=== PATIENT | male | born 1990 | race African-American/Black ===

== ENCOUNTER 2019-06-23 16:51 | Emergency (ER) | payer OTHER ==
[~2019-06-23] VITALS: Ht 170.2 cm; Wt 56.7 kg
[2019-06-23 17:23] LABS: URINE BILIRUBIN NEGATIVE (Negative); URINE BLOOD NEGATIVE (Negative); URINE CLARITY CLEAR; URINE COLOR YELLOW; URINE GLUCOSE-RANDOM* NEGATIVE (Negative); URINE KETONES NEGATIVE (Negative); URINE LEUKOCYTES-REFLEX NEGATIVE (Negative); URINE NITRITE-REFLEX NEGATIVE (Negative); URINE PROTEIN (DIPSTICK) NEGATIVE (Negative)
[2019-06-23] MEDS ORDERED: NAPROSYN500 MG PO (17:46)
[2019-06-23] MEDS ORDERED: VALACYCLOVIR500 MG PO (17:46)
[2019-06-23 18:25] VITALS: BP 115/78
== END 2019-06-23 18:26 | disposition home or self-care (01) ==
LOC: ER 16:51
PROVIDERS: Emergency Medicine
DX: R10.32 Left lower quadrant pain (principal); A60.00 Herpesviral infection of urogenital system, unspecified; J45.909 Unspecified asthma, uncomplicated; Z76.0 Encounter for issue of repeat prescription